=== PATIENT | female | born 1955 | race Caucasian/White ===

== ENCOUNTER 2020-10-20 13:23 | Emergency (ER) | payer MEDICARE, OTHER ==
[~2020-10-20 13:23] MED LIST: ACCUPRIL20 MG PO; ASPIRIN E.C. 3325 MG PO; ATARAX25 MG PO; ATENOLOL25 MG PO; ATIVAN0.5 MG PO; ATROVENT (00.2 MG/ML NEB; BIOFREEZE89 ML TOP; CIPRO500 MG PO; LANTUS **100 UNITS/ SC; LIPITOR 10MG TA10 MG PO; LOVENOX40 MG/0.4 SC; MAALOX ADVANCE355 ML PO; METFORMIN HCL1000 MG PO; METRONIDAZOLE500 MG PO; MILK OF MA400 MG/5 M PO; NORCO 5-325 TA1 EACH PO; PERCOCET 10/321 EACH PO; PERCOCET 5-3251 EACH PO; SENNA8.6 MG PO; XOPENEX (11.25 MG/3 NEB; ZOFRAN4 MG PO; ZOFRAN8 MG PO
== END 2020-10-20 14:55 | disposition home or self-care (01) ==
LOC: FER 13:23
DX: S90.31XA Contusion of right foot, initial encounter (principal); M17.11 Unilateral primary osteoarthritis, right knee; E11.9 Type 2 diabetes mellitus without complications; I10 Essential (primary) hypertension; Z79.01 Long term (current) use of anticoagulants; Z88.8 Allergy status to other drugs, medicaments and biological substances; W23.0XXA Caught, crushed, jammed, or pinched between moving objects, initial encounter
CPT/HCPCS: 73560; 73590; 73620